=== PATIENT | male | born 1985 | race Hispanic/Latino ===

== ENCOUNTER 2019-07-31 11:27 | Emergency (ER) | payer SELFPAY ==
[~2019-07-31] VITALS: Ht 172.7 cm; Wt 107.0 kg
--- NOTE | 2019-07-31 12:05 | Diagnostic Imaging Report ---
X-ray chest frontal view No comparison History: Cough. Bodyaches. Findings: Poor respiratory effort. Central airways unremarkable. Heart size normal. Aorta unremarkable given the technique. No pleural effusion. No pneumothorax. No definite focal lung disease. Visualized skeletal structures and upper abdomen unremarkable. Body wall unremarkable. Impression: No significant focal lung disease given the limitations. Signed by: Saúl Flores MD on 07/31/2019 12:02 PM
--- NOTE | 2019-07-31 12:27 | Emergency Department Note ---
History of Present Illnes History of Present Illness Chief Complaint: Respiratory History of Present Illness This is a 34 year old male COUGH AND FEVER , WAS DX WITH FLU 3 DAYS AGO . Historian: Patient Arrival Mode: Car Onset (how long ago): day(s) (3) Location: CHEST Quality: COUGH Radiation: non-radiation Severity: mild, moderate Onset quality: sudden Duration (how long): day(s) (4) Timing of current episode: constant Progression: unchanged Chronicity: new Context: recent illness Relieving factors: none Exacerbating factors: none Associated symptoms: denies other symptoms Treatments prior to arrival: antipyretic Past Medical/Family History Physician Review I have reviewed the patient's past medical and family history. Any updates have been documented here. Past Medical History Recent Fever: Yes Clinical Suspicion of Infectio: Yes New/Unexplained Change in Ment: No Past Medical History: None Past Surgical History: None Social History Smoking Cessation: Never Smoker Counseling Performed: No Alcohol Use: None Any Illegal Drug Use: No TB Exposure/Symptoms: No Physically hurt or threatened: No Other Any Pre-Existing Lines (PICC,: No Is patient up to date on immun: No Last Flu: 2017 Last Pneumovax: utd Review of Systems Review of Systems Constitutional: no symptoms, fever EENTM: no symptoms Cardiovascular: no symptoms Respiratory: no symptoms, cough Gastrointestinal: no symptoms Genitourinary: no symptoms Musculoskeletal: no symptoms Neurological: no symptoms Psychological: no symptoms Endocrine: no symptoms Hematological/Lymphatic: no symptoms Review of other systems All other systems reviewed and negative. Physical Exam Related Data Allergies: Coded Allergies: No Known Allergies (Unverified , 07/31/19) Triage Vital Signs Vital Signs Date Time Temp Pulse Resp B/P (MAP) Pulse Ox O2 Delivery O2 Flow Rate FiO2 07/31/19 11:42 100.9 117 20 137/76 94 Vital signs reviewed: Yes Physical Exam CONSTITUTIONAL Constitutional: well-developed, well-nourished HENT HENT: normocephalic, atraumatic, oropharynx clear/moist, nose normal HENT L/R: left ext ear normal, right ext ear normal EYES Eyes: PERRL, conjunctivae normal NECK Neck: ROM normal PULMONARY Pulmonary: effort normal, breath sounds normal CARDIOVASCULAR Cardiovascular: regular rhythm, heart sounds normal, capillary refill normal, normal rate GASTROINTESTINAL Abdominal: soft, nontender, bowel sounds normal GENITOURINARY Genitourinary: exam deferred SKIN Skin: warm, dry MUSCULOSKELETAL Musculoskeletal: ROM normal NEUROLOGICAL Neurological: alert, oriented x 3, no gross motor or sensory deficits PSYCHOLOGICAL Psychological: mood/affect normal, judgement normal Results Imaging Imaging results reviewed: Yes Critical Care Time Subsequent provider I assumed direction of critical care for this patient from another provider of my specialty. Assessment & Plan Assessment & Plan Final Impression: (1) Bronchitis (2) Fever (3) Flu Assessment & Plan CONTINUE TAMIFLU Depart Disposition: HOME, SELF-CARE Last Vital Signs Date Time Temp Pulse Resp B/P (MAP) Pulse Ox O2 Delivery O2 Flow Rate FiO2 07/31/19 11:42 100.9 117 20 137/76 94 GM RILEY MD July 31, 2019 12:27
== END 2019-07-31 12:48 | disposition home or self-care (01) ==
LOC: FSED 11:27
DX: R50.9 Fever, unspecified (principal); R05 Cough; J11.1 Influenza due to unidentified influenza virus with other respiratory manifestations
CPT/HCPCS: 71045; 99282